=== PATIENT | female | born 1975 | race Caucasian/White ===

== ENCOUNTER 2017-09-08 01:29 | Emergency (ER) | payer BC ==
[~2017-09-08] VITALS: Ht 167.6 cm; Wt 67.6 kg
[2017-09-08 01:35] VITALS: BP 125/69
[2017-09-08] MEDS ORDERED: BUPIVACAINE 0.5 % PF 150 MG/30 ML VIAL ONE (03:51)
[2017-09-08] MEDS: BUPIVACAINE 0.5 % PF 150 MG/30 ML VIAL IJ ONE (03:54)
== END 2017-09-08 05:15 | disposition home or self-care (01) ==
LOC: ER 01:38
DX: S61.210A Laceration without foreign body of right index finger without damage to nail, initial encounter (principal); Z88.2 Allergy status to sulfonamides; W45.8XXA Other foreign body or object entering through skin, initial encounter; Y93.G1 Activity, food preparation and clean up; Y92.89 Other specified places as the place of occurrence of the external cause; Y99.8 Other external cause status
CPT/HCPCS: 12001; 73140; 99284; A4606; A6402 ×2; J3490; Z7610